=== PATIENT | female | born 1975 | race Two or more races ===

== ENCOUNTER 2024-02-27 21:13 | Emergency (ER) | payer OTHER, SELFPAY ==
[2024-02-27 21:20] VITALS: BP 150/93; PULSE 68; TEMP 36.6; O2SAT 98
--- NOTE | 2024-02-27 21:50 | ED.BACK1 ---
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 She denies any injury. She has not had any loss of bowel or bladder control. She does have some numbness in her right inguinal area which she states is new for her. She denies any fever or chest pain. She is on several medications including Robaxin which she took 2 of earlier today for pain without clinical improvement. Related Data Home Medications ?Medication ?Instructions ?Recorded ?Confirmed amitriptyline 10 mg tablet 10 mg PO DAILY 02/27/24 02/27/24 celecoxib 50 mg capsule (Celebrex) 50 mg PO DAILY 02/27/24 02/27/24 fluoxetine 20 mg capsule 20 mg PO QAM 02/27/24 02/27/24 methocarbamol 500 mg tablet 500 mg PO .qhs 02/27/24 02/27/24 Opioid HPI Opioid Management Most Recent Opioid Data: Last Pain Scale 9 02/27/24 22:37 Review of Systems ROS Status of ROS 10 or more systems reviewed and unremarkable except as noted in history and below Exam Narrative Exam Narrative: Vital signs and Nursing Notes reviewed: Patient is afebrile with a normal pulse, blood pressure is mildly elevated at 150/93, she is not hypoxic with pulse ox of 98% on room air General: Awake, alert, oriented, no acute distress, lying comfortably on the stretcher, she winces in pain with movement of her trunk HEENT: Normocephalic atraumatic, mucous membranes are moist and pink, eyes are clear, normal conjunctiva, vision is grossly intact Chest: Lungs are clear to auscultation with good air entry, there is no wheezing rhonchi or rales appreciated no accessory muscle use, patient is speaking in complete sentences-no chest wall tenderness to palpation CVS: Regular rate and rhythm S1-S2, no murmurs rubs or gallops, pulses are brisk and equal bilaterally ABD: Soft, nondistended, nontender, no rebound guarding or rigidity, bowel sounds are normal, no pulsatile masses appreciated, femoral pulses are brisk and equal bilaterally Extremities: Moving all extremities, no lower extremity tenderness or swelling noted, negative Homans' sign, pulses are brisk and equal bilaterally Musculoskeletal: There is tenderness to palpation in the lumbar region without midline bony vertebral tenderness or step-off Skin: Normal in appearance without rash,pallor, petechiae or purpura Neuro: No focal deficits, lower extremity push pulls are normal. There is mildly decreased sensation in the right inguinal region, sensation is normal in the left inguinal region. There is normal sensation of the webspaces between the toes on both feet. Feet are warm and sensate. Constitutional Vital Signs, click to edit/add: Last Vital Signs Temp 97.8 F 02/27/24 21:20 Pulse 68 02/27/24 21:20 Resp 17 02/27/24 21:20 BP 150/93 H 02/27/24 21:20 Pulse Ox 98 02/27/24 21:20 O2 Del Method Room Air 02/27/24 21:20 Course Vital Signs Vital signs: Vital Signs Temperature 97.8 F 02/27/24 21:20 Pulse Rate 68 02/27/24 21:20 Respiratory Rate 17 02/27/24 21:20 Blood Pressure 150/93 H 02/27/24 21:20 Pulse Oximetry 98 02/27/24 21:20 Oxygen Delivery Method Room Air 02/27/24 21:20 Temperature 97.8 F 02/27/24 21:20 Pulse Rate 68 02/27/24 21:20 Respiratory Rate 17 02/27/24 21:20 Blood Pressure 150/93 H 02/27/24 21:20 Pulse Oximetry 98 02/27/24 21:20 Oxygen Delivery Method Room Air 02/27/24 21:20 MDM - Back Pain/Injury MDM Narrative Medical decision making narrative: This 49-year-old female who recently moved to the [facility] from [place] and has a history of fibromyalgia and degenerative disc disease who states that she has herniated disks presents for evaluation of increasing low back pain today 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 She has some decreased sensation in her left inguinal region. She has not had any loss of bowel or bladder function. She has not had any fever. She has not had any recent injury. She is tender in the lumbar spine with an otherwise normal neuroexam besides the decree sensation in the right inguinal area. CT scan of the lumbar spine was ordered and the findings are included in the body of this report. It does not show any severe herniation or concern for cauda equina. She was medicated in the emergency department with IV fluids, morphine, Zofran, Valium for muscle spasm and Solu-Medrol with clinical improvement. She appears much more comfortable after the medications. She has a lengthy statement from her [place] of origin stating that she is recommended not to use several medications including ketorolac so Toradol was withheld. The patient was given a copy of her CT scan to share with her family physician and will be referred to outpatient orthopedist/paint specialist Dr. Ventura. She will be discharged home with prescription for [place] and Valium and Medrol Dosepak to use as needed for ongoing worsening pain. She was also given Zofran to prevent nausea and Colace to prevent constipation from the medications. Her also requests that I give her a prescription for fluoxetine 20 mg as she has been receiving a 2-week supply of fluoxetine 10 mg that she is supposed to take 2 on a daily basis. He has contacted the physician that she sees to get this prescription changed to 20 mg tablets but he is unavailable for the next 6 weeks. she was recommended to stay hydrated, use warm compresses, moist heat and gentle stretching for her pain. Medical Records Medical records narrative: [place] [address] CT Scan Report Signed Patient: NATACHA JIMÉNEZ MR#: [id number] : 1975 Acct:[id number] Age/Sex: 49 / F ADM Date: 02/27/24 Loc: ER Attending Dr: Ordering Physician: Robin Sampson Date of Service: 02/27/24 Procedure(s): CT lumbar spine wo con Accession Number(s): [id number] cc: Physician,Non-Staff M.D.~ The [address] [address] Patient Name: NATACHA JIMÉNEZ MRN: [id number] date: 1975 Sex: F Assigned Patient Location: ER Current Patient Location: ER Accession/Order Number: [id number] Exam Date: 02/27/2024 22:30 Report Date: 02/27/2024 23:00 At the request of: ROBIN MARKER Procedure: CT lumbar spine wo con EXAM: CT lumbar spine wo con HISTORY: low back pain , hx herniated discs COMPARISON: Back pain with radiation down to both legs after lifting a heavy object. TECHNIQUE: Axial CT scans of the lumbar spine were obtained without contrast. MPR images were obtained. Dose reduction techniques were achieved by using: automated exposure control and/or adjustment of mA and /or kV according to patient size and/or use of iterative reconstruction technique. FINDINGS: No acute fracture or posttraumatic malalignment. At L5-S1, decreased disc height and vacuum disc phenomena secondary to disc degeneration. Mild-moderate left neural foraminal stenosis is secondary to decreased disc height and discovertebral complex. No central spinal stenosis. No spondylolysis or spondylolisthesis. No destructive bony lesions. SI joints are intact. The visualized retroperitoneum shows no adenopathy. CT/CT lumbar spine wo con IMPRESSION: No acute fracture or posttraumatic malalignment. No central spinal stenosis. Discovertebral degenerative changes at L5-S1 with mild-moderate stenosis of the left L5-S1 neural foramen. Electronically authenticated by: RODRIGO MCCLELLAN Date: 02/27/2024 23:00 Discharge Plan Discharge Chief Complaint: Back Pain/Injury Clinical Impression: Acute exacerbation of chronic low back pain, Lumbar radiculopathy Patient Disposition: Home, Self-Care Time of Disposition Decision: 23:32 Condition: Good Prescriptions / Home Meds: No Action methocarbamol 500 mg tablet 500 mg PO .qhs amitriptyline 10 mg tablet 10 mg PO DAILY fluoxetine 20 mg capsule 20 mg PO QAM celecoxib [Celebrex] 50 mg capsule 50 mg PO DAILY Print Language: Mozambican Referrals: Physician,Non-Staff, MD [Primary Care Provider] - 1 week
--- NOTE | 2024-02-27 22:10 | CT_ITS ---
The [place] [id number] Patient Name: NATACHA JIMÉNEZ MRN: [id number] date: 1975 Sex: F Assigned Patient Location: ER Current Patient Location: ER Accession/Order Number: [id number] Exam Date: 02/27/2024 22:30 Report Date: 02/27/2024 23:00 At the request of: ROBIN MARKER Procedure: CT lumbar spine wo con EXAM: CT lumbar spine wo con HISTORY: low back pain , hx herniated discs COMPARISON: Back pain with radiation down to both legs after lifting a heavy object. TECHNIQUE: Axial CT scans of the lumbar spine were obtained without contrast. MPR images were obtained. Dose reduction techniques were achieved by using: automated exposure control and/or adjustment of mA and /or kV according to patient size and/or use of iterative reconstruction technique. FINDINGS: No acute fracture or posttraumatic malalignment. At L5-S1, decreased disc height and vacuum disc phenomena secondary to disc degeneration. Mild-moderate left neural foraminal stenosis is secondary to decreased disc height and discovertebral complex. No central spinal stenosis. No spondylolysis or spondylolisthesis. No destructive bony lesions. SI joints are intact. The visualized retroperitoneum shows no adenopathy. CT/CT lumbar spine wo con IMPRESSION: No acute fracture or posttraumatic malalignment. No central spinal stenosis. Discovertebral degenerative changes at L5-S1 with mild-moderate stenosis of the left L5-S1 neural foramen. Electronically authenticated by: RODRIGO MCCLELLAN Date: 02/27/2024 23:00
[2024-02-27] MEDS: METHYLPREDNISOLONE SOD SUCC PF 125 MG/2 ML VIAL IVP (22:37)
[2024-02-27] MEDS: DIAZEPAM 5 MG TABLET PO (22:37)
[2024-02-27] MEDS: MORPHINE SULFATE 4 MG/ML VIAL IV (22:37)
[2024-02-27] MEDS: ONDANSETRON PF 4 MG/2 ML VIAL IV (22:37)
[2024-02-27 23:55] VITALS: PULSE 67; O2SAT 97
== END 2024-02-27 23:57 | disposition home or self-care (01) ==
PROVIDERS: Emergency Provider Emergency Medicine
DX: M54.16 Radiculopathy, lumbar region (principal); M54.50 Low back pain, unspecified; G89.29 Other chronic pain; M79.7 Fibromyalgia; M51.37 Other intervertebral disc degeneration, lumbosacral region; M48.07 Spinal stenosis, lumbosacral region
CPT/HCPCS: 72131; 96374; 96375; 99284; J2270; J2405; J2919